=== PATIENT | female | born 1995 | race Caucasian/White ===

== ENCOUNTER 2017-05-06 06:09 | Day surgery (SDC) | payer BC ==
[2017-05-02 12:40] VITALS: BMI 25.6
[2017-05-06] MEDS ORDERED: DEXAMETHASONE SOD PHOSPHATE/PF 10 MG/ML SDV ONE (06:31)
[2017-05-06] MEDS ORDERED: SODIUM CHLORIDE 0.9% P/F 10 ML VIAL IJ ONE (06:31)
[2017-05-06] MEDS ORDERED: ROPIVACAINE HCL 0.5% 30ML VIAL ONE (06:31)
[2017-05-06] MEDS ORDERED: MIDAZOLAM HCL 2 MG/2 ML SINGLE DOSE VIAL ONE ×2 (06:31→07:15)
[2017-05-06] MEDS ORDERED: BUPIVACAINE HCL/EPINEPHRINE/PF 30 ML VIAL IJ ONE (07:10)
[2017-05-06] MEDS ORDERED: VANCOMYCIN 1,000 MG VIAL (RESTRICTED TO ID ONLY) ONE (07:10)
[2017-05-06] MEDS ORDERED: ceFAZolin SODIUM 1 GM VIAL ONE (07:14)
[2017-05-06] MEDS ORDERED: SUCCINYLCHOLINE CHLORIDE 200 MG/10 ML VIAL ONE (07:15)
[2017-05-06] MEDS ORDERED: PROPOFOL 20 ML ONE (07:15)
[2017-05-06] MEDS ORDERED: ONDANSETRON 4 MG/2 ML VIAL ONE ×2 (07:19→10:05)
[2017-05-06] MEDS ORDERED: LIDOCAINE HCL/PF 2% SDV 5ML VIAL ONE (07:19)
[2017-05-06] MEDS ORDERED: DEXAMETHASONE SOD PHOSPHATE 4 MG/1 ML VIAL ONE (07:19)
[2017-05-06] MEDS ORDERED: LIDOCAINE HCL 2% JELLY (5 ML/TUBE) ONE (08:02)
[2017-05-06] MEDS ORDERED: TRANEXAMIC ACID 1000 MG/10 ML VIAL ONE (08:12)
--- NOTE | 2017-05-06 09:54 | OP ---
Operative Note - Note: Operative Date: 05/06/17 Pre-Operative Diagnosis: right knee LMT, MMT, ACL tear Operation: RKA, MMR, LMR, ACLR (allograft) Post-Operative Diagnosis: Same as Pre-op Surgeon: Yuriy Sinclair Anesthesiologist/SOCIAL STUDIES DEPARTMENT CHAIR: Cade Brock Anesthesia: General Operative Report Dictated: Yes
--- NOTE | 2017-05-06 09:54 | DS ---
Physical Examination Vital Signs: Vital Signs Temperature 98.7 F 05/06/17 06:42 Pulse Rate 85 05/06/17 06:42 Respiratory Rate 16 05/06/17 06:42 Blood Pressure 131/90 05/06/17 06:42 O2 Sat by Pulse Oximetry (%) 97 05/06/17 06:42 Discharge Summary Reason For Visit: ANTERIOR CRUCIATE LIGAMENT MEDIAL AND LAT MENISC T Condition: Good - Instructions Diet, Activity, Other Instructions: Post Operative Instructions: ACL Reconstruction Dr. Yuriy Sinclair 1. Pain following an ACL reconstruction is variable and can be significant. Some patients will have more pain than others. You have been provided with a prescription for medication that contains a narcotic. You are not allowed to drive while on this medication. Feel free to take medications such as Ibuprofen or Naprosyn in addition to the pain medicine if you do not have any problems with the NSAID class of medications. 2. You should not remove the bandages for 48 hours unless directed otherwise. You may shower at that point. You are not allowed to bathe or go swimming until the sutures are removed. Put band-aids on the sutures after your shower and do not put any creams or lotions over the incisions. 3. You are allowed to put most of your weight on the leg and you should bend your knee, 4. Getting the knee straight is your most important goal during the first 72 hours following an ACL reconstruction. Try not to lie down with a pillow under your knee. Instead the pillow should be under your ankle, thus allowing you to push your knee straight down into the bed. This is a very important milestone to achieve before your first post-surgery visit with me. 5. Swelling around the knee is normal following an ACL reconstruction. 6. The area around the knee and along the front of your lugo will also become swollen and black and blue. 7. Apply ice to the knee for 15 min every hour or so. You may continue this for as many days as you like. 8. Please call the office to schedule a visit to have your sutures removed. 9. If for any reason you believe you may have an infection or are concerned, please feel free to call me. I can be reached through our office number 24 hours a day. 10. Please call our office with any questions; we will review the surgical findings during your post operative visit. Disposition: HOME - Home Medications Comprehensive Discharge Medication List: Ambulatory Orders Citalopram Hydrobromide [Celexa -] 10 mg PO HS 05/02/17 Cyclobenzaprine HCl [Flexeril 10 mg] 10 mg PO HS PRN 05/02/17 RX: Melatonin 5 mg PO HS PRN 05/02/17 RX: Trazodone HCl 300 mg PO HS PRN 05/02/17 Nitrofurantoin Macrocrystal [Nitrofurantoin] 100 mg PO ASDIR 05/06/17
--- NOTE | 2017-05-06 10:09 | SURG ---
Surgery Certified Emergency Vehicle Technician Note Certified Emergency Vehicle Technician: Warren Grace PA-C Date of Service: 05/06/17 Diagnosis: right knee LMT, MMT, ACL tear Procedure: Right knee arthroscopy, MMR, LMR, ACL reconstruction with allograft I was present for the entirety of the operative procedure. For further detail, please refer to operative report. Visit type - Case Type Case Type: Scheduled Admission - New patient This patient is new to me today: Yes Date on this admission: 05/06/17
[2017-05-06] MEDS ORDERED: ONDANSETRON 4 MG/2 ML VIAL IVPUSH ONE (10:10)
[2017-05-06] MEDS ORDERED: diphenhydrAMINE HCL 25 MG CAPSULE (FP) PO ONE (11:08)
[2017-05-06] MEDS ORDERED: oxyCODONE HCL 5 MG TABLET ONE (11:08)
[2017-05-06] MEDS ORDERED: HYDROmorphone HCL 2 MG TABLET ONE (12:03)
[2017-05-06 12:22] VITALS: TEMP 98
[2017-05-06 12:27] VITALS: BP 125/88; PULSE 110
[2017-05-06] MEDS ORDERED: ONDANSETRON 4 MG/2 ML VIAL IVPUSH PRN (13:52)
[2017-05-06] MEDS ORDERED: PROMETHAZINE HCL 25 MG/1 ML VIAL IVPUSH PRN (13:52)
[2017-05-06] MEDS ORDERED: oxyCODONE HCL 5 MG TABLET PO PRN ×2 (13:52)
--- NOTE | 2017-05-09 15:46 | PATH ---
Surgical Pathology Report Patient Name: TITUS MCINTOSH Med. Rec. #: [id number] /Age/Gender: 1995 (Age: 22) / F Account: [id number] Location: [facility] Taken: 05/06/2017 Received: 05/06/2017 Reported: 05/09/2017 Physicians: Yuriy Sinclair M.D. Specimen(s) Received A: SHAVINGS RIGHT KNEE B: HARDWARE RIGHT KNEE Clinical History Right ACL, medial and lateral meniscus tear Final Diagnosis A. KNEE, RIGHT, ARTHROSCOPIC SHAVING: FIBROCARTILAGE WITH MYXOID DEGENERATIVE CHANGES, ALONG WITH PORTIONS OF SYNOVIUM AND BONE. B. ORTHOPEDIC HARDWARE, RIGHT KNEE, REMOVAL: METALLIC SCREW CONSISTENT WITH ORTHOPEDIC HARDWARE (GROSS ONLY). Electronically Signed Paul Collier M.D. Gross Description A. Received in formalin, labeled "shavings right knee," is a 3.0 x 2.5 x 0.3 cm. aggregate of fuller-yellow soft tissue fragments. A retail sales representative portion is submitted in one cassette. B. Received fresh labeled "hardware right knee," is a 1.9 cm in length mcdaniel metallic screw. No soft tissue is present. No sections are submitted, gross only. 05/06/2017 saudi05/06/2017
== END 2017-05-06 12:55 | disposition home or self-care (01) ==
LOC: FASU 06:09
PROVIDERS: ATTEND Orthopaedic Surgery
PROC: 0SQC4ZZ Repair Right Knee Joint, Percutaneous Endoscopic Approach (ICD-10-PCS; 2017-05-06)
PROC: 0SBC4ZZ Excision of Right Knee Joint, Percutaneous Endoscopic Approach (ICD-10-PCS; 2017-05-06)
PROC: 0MRN47Z Replacement of Right Knee Bursa and Ligament with Autologous Tissue Substitute, Percutaneous Endoscopic Approach (ICD-10-PCS; principal; 2017-05-06 08:27)
DX: S83.511D Sprain of anterior cruciate ligament of right knee, subsequent encounter (principal); X58.XXXD Exposure to other specified factors, subsequent encounter; S83.271A Complex tear of lateral meniscus, current injury, right knee, initial encounter; S83.241A Other tear of medial meniscus, current injury, right knee, initial encounter; X58.XXXA Exposure to other specified factors, initial encounter; Y93.9 Activity, unspecified; Y92.9 Unspecified place or not applicable
CPT/HCPCS: 73560-TC-RT; 84703; 88300-TC; 88304-TC; 94760